=== PATIENT | female | born 1995 | race African-American/Black ===

== ENCOUNTER 2025-01-04 11:28 | Emergency (ER) | payer OTHER ==
[~2025-01-04] VITALS: Ht 162.6 cm; Wt 75.4 kg
[2025-01-04] MEDS ORDERED: IBUP-1022 PO (11:35)
[2025-01-04] MEDS: ACETAMINOPHEN 325 MG TAB PO ONE (12:51)
[2025-01-04 15:18] VITALS: BP 118/86; TEMP 97.6; O2SAT 100
== END 2025-01-04 15:22 | disposition home or self-care (01) ==
LOC: M ED 11:28
DX: N64.4 Mastodynia (principal); N63.20 Unspecified lump in the left breast, unspecified quadrant; D57.3 Sickle-cell trait; Z79.1 Long term (current) use of non-steroidal anti-inflammatories (NSAID)

== ENCOUNTER → 2025-04-17 | Outpatient (CLI) | payer OTHER ==
[~2025-04-17] MED LIST: IBUP-1022 PO
== END ==
LOC: M LAB 15:13
PROVIDERS: ATTEND Surgery
DX: N61.0 Mastitis without abscess (principal)

== ENCOUNTER 2025-04-27 06:16 | Day surgery (SDC) | payer OTHER ==
[~2025-04-27] VITALS: Ht 160 cm; Wt 75.3 kg
[~2025-04-27 06:16] MED LIST changes: -IBUP-1022 PO; +IBUP600T42 PO
[2025-04-27] MEDS ORDERED: LIDOCAINE 2% 100 MG/5 ML SDV (FOR ANES.) As Ordered ONE (06:58)
[2025-04-27] MEDS ORDERED: dexmedeTOMIDine (4 MCG/ML) 200 MCG/50 ML BTL As Ordered ONE (06:59)
[2025-04-27] MEDS ORDERED: ONDANSETRON 4MG 2ML VIAL As Ordered ONE (06:59)
[2025-04-27] MEDS ORDERED: dexAMETHasone 4 MG/ML 1 ML VIAL As Ordered ONE (06:59)
[2025-04-27] MEDS ORDERED: MIDAZOLAM INJ 2 MG/2 ML VIAL As Ordered ONE (07:04)
[2025-04-27] MEDS: LR 1,000 ML IV SCH (07:13)
[2025-04-27] MEDS: ceFAZolin SOD 2 GM IV ONCE IV ONE (07:37)
[2025-04-27] MEDS ORDERED: ACETAMINOPHEN 1000MG/100ML IV BAG As Ordered ONE (07:43)
[2025-04-27] MEDS ORDERED: LR 1,000 ML IV SCH (09:05)
[2025-04-27] MEDS ORDERED: OXYC1CAP2 PO (09:14)
[2025-04-27] MEDS ORDERED: OXYC-1 PO (09:14)
[2025-04-27] MEDS: HYDROMORPHONE HCL 0.5 MG/0.5 ML SYRINGE IV PRN (09:27)
[2025-04-27 10:50] VITALS: BP 122/75; TEMP 97; O2SAT 99
== END 2025-04-27 11:01 | disposition home or self-care (01) ==
LOC: M SDC 06:16
PROVIDERS: ATTEND Surgery
DX: C50.912 Malignant neoplasm of unspecified site of left female breast (principal); N60.12 Diffuse cystic mastopathy of left breast
CPT/HCPCS: 19120; 81025; 88305; J0131; J0690; J1100; J1171; J2250; J2405; J3010

== ENCOUNTER → 2025-05-09 | Outpatient (CLI) | payer OTHER ==
[~2025-05-09] MED LIST changes: +OXYC-1 PO; +OXYC1CAP2 PO
== END ==
LOC: M PLALAB 14:22
PROVIDERS: ATTEND Surgery
DX: O92.6 Galactorrhea (principal)

== ENCOUNTER 2025-08-18 09:28 | Emergency (ER) | payer OTHER ==
[~2025-08-18] VITALS: Ht 162.6 cm; Wt 81.1 kg
[2025-08-18 09:30] VITALS: TEMP 98.9
[2025-08-18] MEDS: IBUPROFEN 600 MG TAB PO ONE (11:02)
[2025-08-18 11:04] VITALS: BP 120/81; O2SAT 100
== END 2025-08-18 11:06 | disposition home or self-care (01) ==
LOC: M ED 09:28
DX: S90.122A Contusion of left lesser toe(s) without damage to nail, initial encounter (principal); Y92.019 Unspecified place in single-family (private) house as the place of occurrence of the external cause; Y93.9 Activity, unspecified; Y99.9 Unspecified external cause status; W20.8XXA Other cause of strike by thrown, projected or falling object, initial encounter; D57.3 Sickle-cell trait; Z79.899 Other long term (current) drug therapy